=== PATIENT | female | born 1995 | race Caucasian/White ===

== ENCOUNTER 2016-12-03 13:08 | Emergency (ER) | payer MEDICAID ==
[2016-12-03] MEDS ORDERED: ACETAMINOPHEN 325 MG TABLET PO ONE (14:55)
[2016-12-03] MEDS ORDERED: CETIRIZINE 10 MG TABLET PO ONE (14:59)
--- NOTE | 2016-12-03 15:00 | ER Document Report ---
HPI - HPI Patient complains to provider of: Sinus congestion Onset: Last week - Since last Onset/Duration: Worse Quality of pain: Achy Pain Level: 3 Context: Complaining of sinus congestion and drainage. Patient is currently 5 months patient reports cough that started yesterday with low-grade fever of 100. Patient denies any urinary symptoms at this time. Patient is . Associated Symptoms: Nonproductive cough, Fever, Rhinnorhea, Sinus pain/ drainage. denies: Sore throat Exacerbated by: Denies Relieved by: Denies Similar symptoms previously: Yes Recently seen / treated by doctor: No - ROS ROS below otherwise negative: Yes Systems Reviewed and Negative: Yes All other systems reviewed and negative - CONSTITUTIONAL Constitutional: REPORTS: Fever - EENT EENT: REPORTS: Nasal Drainage-Clear, Congestion - NEURO Neurology: REPORTS: Headache - CARDIOVASCULAR Cardiovascular: DENIES: Chest pain - RESPIRATORY Respiratory: REPORTS: Coughing. DENIES: Trouble Breathing - GASTROINTESTINAL Gastrointestinal: DENIES: Abdominal Pain, Nausea, Patient vomiting, Diarrhea - URINARY Urinary: DENIES: Dysuria, Urgency, Frequency - MUSCULOSKELETAL Musculoskeletal: DENIES: Back Pain - DERM Skin Color: Normal Skin Problems: None Past Medical History - General Information source: Patient Last Menstrual Period: 5 months - Social History Smoking Status: Never Smoker Frequency of alcohol use: None Drug Abuse: None Occupation: None Lives with: Family Family History: Reviewed & Not Pertinent Patient has suicidal ideation: No Patient has homicidal ideation: No Pulmonary Medical History: Reports: Hx Asthma EENT Medical History: Reports: Other - Allergy Renal/ Medical History: Denies: Hx Peritoneal Dialysis Surgical Hx: Negative Vertical Provider Document - CONSTITUTIONAL Agree With Documented VS: Yes General Appearance: WD/WN, No Apparent Distress - INFECTION CONTROL TRAVEL OUTSIDE OF THE [place] IN LAST 30 DAYS: No - HEENT HEENT: Atraumatic, Normocephalic. negative: Pharyngeal Exudate, Pharyngeal Tenderness, Tympanic Membrane Red, Tympanic Membrane Bulging Notes: Clear rhinorrhea, swollen nasal mucosa - NECK Neck: Normal Inspection, Supple, Other - No meningismus. negative: Lymphadenopathy-Left, Lymphadenopathy-Right - RESPIRATORY Respiratory: Breath Sounds Normal, No Respiratory Distress, Chest Non-Tender O2 Sat by Pulse Oximetry: 100 - CARDIOVASCULAR Cardiovascular: Regular Rate, Regular Rhythm, No Murmur - BACK Back: Normal Inspection. negative: CVA Tenderness-Right, CVA Tenderness-Left - MUSCULOSKELETAL/EXTREMETIES Musculoskeletal/Extremeties: MATRIPP, FROM - NEURO Level of Consciousness: Awake, Alert, Appropriate Motor/Sensory: No Motor Deficit - DERM Integumentary: Warm, Dry, No Rash Course - Vital Signs Vital signs: Temp Pulse Resp BP Pulse Ox 97.6 F 98 18 101/83 100 12/03/16 13:34 12/03/16 13:34 12/03/16 13:34 12/03/16 13:34 12/03/16 13:34 Discharge - Discharge Clinical Impression: Sinus congestion Upper respiratory infection Qualifiers: URI type: unspecified URI Qualified Code(s): J06.9 - Acute upper respiratory infection, unspecified Condition: Stable Disposition: HOME, SELF-CARE Instructions: Upper Respiratory Illness ([facility]), Acetaminophen Additional Instructions: Return immediately for any new or worsening symptoms Followup with your primary care provider, call tomorrow to make a followup appointment Increase oral hydration You may take Tylenol szzv-ona-[id number] to help with her headache symptoms, you can take 1000 mg every 6 hours you may take Benadryl zpox-seo-[id number] to help with sinus congestion you may take vwma-bte-[id number] Mucinex to help with congestion symptoms use saline nasal spray over the counter as directed to help with congestion symptoms Referrals: [facility] [Provider Group] - Follow up tomorrow
[2016-12-03 16:13] VITALS: BP 107/57
== END 2016-12-03 16:09 | disposition home or self-care (01) ==
LOC: ER 13:08
DX: O99.519 Diseases of the respiratory system complicating pregnancy, unspecified trimester (principal); J06.9 Acute upper respiratory infection, unspecified; J34.89 Other specified disorders of nose and nasal sinuses; J45.909 Unspecified asthma, uncomplicated; O26.899 Other specified pregnancy related conditions, unspecified trimester; R09.81 Nasal congestion; R05 Cough; R50.9 Fever, unspecified; R51 Headache; Z3A.00 Weeks of gestation of pregnancy not specified
CPT/HCPCS: 99283; J3490 ×2

== ENCOUNTER 2017-02-07 15:01 | Outpatient (CLI) | payer MEDICAID ==
[2017-02-07 16:04] LABS: AMORPHOUS SEDIMENT,URINE TRACE /HPF; APPEARANCE,URINE SLIGHTLY-CLOUDY; BILIRUBIN,URINE NEGATIVE (NEGATIVE); GLUCOSE, URINE NEGATIVE (NEGATIVE); KETONES,URINE NEGATIVE (NEGATIVE); LEUKOCYTE ESTERASE,URINE MODERATE (NEGATIVE); NITRITE,URINE NEGATIVE (NEGATIVE); PROTEIN,URINE NEGATIVE (NEGATIVE); URINE SPECIFIC GRAVITY 1.009; UROBILINOGEN,URINE NEGATIVE mg/dL (<2.0)
[2017-02-07 16:21] LABS: URINE BARBITURATES SCREEN NEGATIVE; URINE METHADONE SCREEN NEGATIVE; URINE OPIATES LOW NEGATIVE; URINE PHENCYCLIDINE SCREEN NEGATIVE
--- NOTE | 2017-02-07 17:58 | RADIOLOGY REPORT (SQ) ---
EXAM DESCRIPTION: U/S OB LIMITED COMPLETED DATE/TIME: 02/07/2017 5:49 pm REASON FOR STUDY: transvaginalcervical length for back pain/cramping COMPARISON: None. TECHNIQUE: Limited transvaginal grayscale ultrasound for evaluation of specific requested obstetrica l parameters. LIMITATIONS: None. FINDINGS: CERVICAL LENGTH: 3.1 cm Closed. LAZARO: 18.2 cm. FHR: 130 beats per minute. PRESENTATION: Cephalic. OTHER: No other significant findings. IMPRESSION: LIMITED OBSTETRICAL ULTRASOUND WITH MEASURED PARAMETERS DELINEATED ABOVE. Trimester of : Third trimester - 28 weeks to delivery. TECHNICAL DOCUMENTATION: JOB ID: [id number] [employer]- All Rights Reserved
[2017-02-07] MEDS ORDERED: BETAMET ACET/BETAMET NA INJ 6 MG/1 ML IM ONE (18:42)
[2017-02-07] MEDS ORDERED: BETAMET ACET/BETAMET NA INJ 6 MG/1 ML ONE (18:50)
== END 2017-02-07 19:00 | disposition home or self-care (01) ==
LOC: LC 15:01
PROVIDERS: ATTEND Obstetrics & Gynecology
PROC: 4A1HXCZ Monitoring of Products of Conception, Cardiac Rate, External Approach (ICD-10-PCS; principal; 2017-02-07)
DX: O47.03 False labor before 37 completed weeks of gestation, third trimester (principal); Z3A.30 30 weeks gestation of pregnancy
CPT/HCPCS: 59899; 81001; 80307; 76815; J0702

== ENCOUNTER 2017-02-08 18:07 | Outpatient (CLI) | payer MEDICAID ==
[2017-02-08] MEDS ORDERED: BETAMET ACET/BETAMET NA INJ 6 MG/1 ML IM PRN (18:08)
[2017-02-08] MEDS ORDERED: BETAMET ACET/BETAMET NA INJ 6 MG/1 ML ONE ×2 (18:20→18:21)
== END 2017-02-08 18:24 | disposition home or self-care (01) ==
LOC: LC 18:07
PROVIDERS: ATTEND Specialist
DX: O47.03 False labor before 37 completed weeks of gestation, third trimester (principal); Z3A.30 30 weeks gestation of pregnancy
CPT/HCPCS: 96372; J0702

== ENCOUNTER 2017-03-22 14:12 | Outpatient (CLI) | payer MEDICAID ==
[2017-03-22 14:47] LABS: APPEARANCE,URINE SLIGHTLY-CLOUDY; BILIRUBIN,URINE NEGATIVE (NEGATIVE); GLUCOSE, URINE NEGATIVE (NEGATIVE); KETONES,URINE NEGATIVE (NEGATIVE); LEUKOCYTE ESTERASE,URINE MODERATE (NEGATIVE); NITRITE,URINE NEGATIVE (NEGATIVE); PROTEIN,URINE NEGATIVE (NEGATIVE); URINE SPECIFIC GRAVITY 1.008; UROBILINOGEN,URINE NEGATIVE mg/dL (<2.0)
[2017-03-22 15:06] LABS: URINE BARBITURATES SCREEN NEGATIVE; URINE METHADONE SCREEN NEGATIVE; URINE OPIATES LOW NEGATIVE; URINE PHENCYCLIDINE SCREEN NEGATIVE
== END 2017-03-22 15:39 | disposition home or self-care (01) ==
LOC: LC 14:12
PROVIDERS: ATTEND Student in an Organized Health Care Education/Training Program
PROC: 4A1HXCZ Monitoring of Products of Conception, Cardiac Rate, External Approach (ICD-10-PCS; principal; 2017-03-22)
DX: O47.03 False labor before 37 completed weeks of gestation, third trimester (principal); Z3A.36 36 weeks gestation of pregnancy
CPT/HCPCS: 59025; 80307; 81001

== ENCOUNTER 2017-04-09 12:07 | Inpatient (IN) | payer MEDICAID ==
[2017-04-09 13:14] LABS: AMORPHOUS SEDIMENT,URINE TRACE /HPF; APPEARANCE,URINE CLOUDY; BILIRUBIN,URINE NEGATIVE (NEGATIVE); GLUCOSE, URINE NEGATIVE (NEGATIVE); KETONES,URINE NEGATIVE (NEGATIVE); LEUKOCYTE ESTERASE,URINE TRACE (NEGATIVE); NITRITE,URINE NEGATIVE (NEGATIVE); PROTEIN,URINE NEGATIVE (NEGATIVE); URINE SPECIFIC GRAVITY 1.012; UROBILINOGEN,URINE NEGATIVE mg/dL (<2.0)
[2017-04-09 13:25] LABS: URINE BARBITURATES SCREEN NEGATIVE; URINE METHADONE SCREEN NEGATIVE; URINE OPIATES LOW NEGATIVE; URINE PHENCYCLIDINE SCREEN NEGATIVE
[2017-04-09] MEDS ORDERED: RINGERS SOLUTION,LACTATED 1,000 ML IV PRN (14:11)
[2017-04-09] MEDS ORDERED: RINGERS SOLUTION,LACTATED 300 ML IV ONE (14:11)
[2017-04-09] MEDS ORDERED: OXYTOCIN/NORMAL SALINE 20 UNIT/1,000 ML RTUINJ IV PRN ×2 (14:11→23:14)
[2017-04-09 14:44] LABS: ABSOLUTE BASOPHILS # (AUTO) 0.1 10^3/uL (0.0-0.2); ABSOLUTE EOSINOPHILS # (AUTO) 0.2 10^3/uL (0.0-0.6); ABSOLUTE LYMPHOCYTES (AUTO) 2.8 10^3/uL (0.5-4.7); ABSOLUTE NEUT (AUTO) 12.6 10^3/uL (1.7-8.2); BASOPHILS % (AUTO) 0.4 % (0-2); EOSINOPHILS % (AUTO) 1.1 % (0-6); HEMATOCRIT 37.9 % (36.0-47.0); HEMOGLOBIN 13.2 g/dL (12.0-15.5); HGB HCT DIFFERENCE 1.7; LYMPHOCYTES % (AUTO) 16.8 % (13-45); MEAN CORPUSCULAR HEMOGLOBIN 31.5 pg (27.0-33.4); MEAN CORPUSCULAR HGB CONC 34.9 g/dL (32.0-36.0); MEAN CORPUSCULAR VOLUME 90 fl (80-97); MONOCYTES % (AUTO) 5.9 % (3-13); SEGMENTED NEUTROPHILS % (AUTO) 75.8 % (42-78); WHITE BLOOD COUNT 16.7 10^3/uL (4.0-10.5)
[2017-04-09] MEDS ORDERED: MISOPROSTOL 0.1 MG TABLET PO ONE (14:45)
[2017-04-09] MEDS ORDERED: MISOPROSTOL 0.1 MG TABLET ONE (15:41)
[2017-04-09 16:54] LABS: CHLAM PCR NOT DETECTED (NOT DETECT)
[2017-04-09] MEDS ORDERED: MISOPROSTOL 0.1 MG TABLET PV SCH (18:00)
[2017-04-09] MEDS ORDERED: MISOPROSTOL 0.2 MG TABLET ONE (20:11)
[2017-04-09] MEDS ORDERED: OXYTOCIN/NORMAL SALINE 20 UNIT/1,000 ML RTUINJ ONE (20:11)
[2017-04-09] MEDS ORDERED: LIDOCAINE 1% INJ-PF (10 MG/ML) 30 ML SDV ONE (20:11)
[2017-04-09] MEDS ORDERED: FENTANYL/BUPIVACAINE/NS/PF 200 MCG/100 ML RTUINJ EPI ONE (21:44)
[2017-04-09] MEDS ORDERED: EPHEDRINE SULFATE INJ 50 MG/1 ML AMPULE ONE (21:44)
[2017-04-09] MEDS ORDERED: BUPIVACAINE HCL 0.25 % INJ/PF (2.5 MG/1 ML) 30 ML VIAL ONE (21:44)
[2017-04-09] MEDS ORDERED: DIPH/PERTUSS(ACELL)/TETANUS VAC/PF 0.5 ML SYR (>=10YO) IM PRN (23:14)
[2017-04-09] MEDS ORDERED: PROMETHAZINE HCL 25 MG SUPP.RECT PR PRN (23:14)
[2017-04-09] MEDS ORDERED: DIBUCAINE 1% OINTMENT 28 GM TP PRN (23:14)
[2017-04-09] MEDS ORDERED: PROMETHAZINE HCL 25 MG TABLET PO PRN (23:14)
[2017-04-09] MEDS ORDERED: NA PHOS,M-B/NA PHOS,DI-BA (ADULT) 133 ML ENEMA PR PRN (23:14)
[2017-04-09] MEDS ORDERED: BENZOCAINE/MENTHOL AEROSOL SPRAY 56 ML TOP PRN (23:14)
[2017-04-09] MEDS ORDERED: MEASLES,MUMPS&RUBELLA VACC/PF 0.5 ML VIAL SUBCUT PRN (23:14)
[2017-04-09] MEDS ORDERED: PSEUDOEPHEDRINE HCL 30 MG TABLET PO PRN (23:14)
[2017-04-09] MEDS ORDERED: DIPHENHYDRAMINE HCL 25 MG CAPSULE PO PRN (23:14)
[2017-04-09] MEDS ORDERED: ACETAMINOPHEN 650 MG SUPP.RECT PR PRN (23:14)
[2017-04-09] MEDS ORDERED: GLYCERIN/WITCH HAZEL LEAF 1 EACH MED..PAD TP PRN (23:14)
[2017-04-09] MEDS ORDERED: ACETAMINOPHEN WITH CODEINE #3 TABLET PO PRN ×2 (23:14)
[2017-04-09] MEDS ORDERED: MAGNESIUM HYDROXIDE SUSP 30 ML UDCUP PO PRN (23:14)
[2017-04-09] MEDS ORDERED: ZOLPIDEM TARTRATE 5 MG TABLET PO PRN (23:14)
[2017-04-09] MEDS ORDERED: PROMETHAZINE HCL INJ 25 MG/1 ML VIAL IV PRN (23:14)
--- NOTE | 2017-04-09 23:42 | Delivery Summary ---
Del Sum A-C Datetime Report Generated by CPN: 04/09/2017 23:41 DELIVERY PERSONNEL DELIVERY PERSONNEL: [id number] Delivery Doctor:: Velia Patrick MD Anesthesiologist:: Kike Felton MD Labor and Delivery Nurse:: Hoda Menezes RNweighbridge operator Nurse:: Jolanta Ward RN Film Mounter/INSTRUCTOR PROGRAMMABLE CONTROLLERS: Vickeycolette Soler, INSTRUCTOR PROGRAMMABLE CONTROLLERS MATERNAL INFORMATION Delivery Anesthesia: Epidural Medications After Delivery: Pitocin Bolus-Please Comment Meds After Delivery Comment: pitocin 20 units in 1000 ml NS Estimated Blood Loss (ml): 200 Maternal Complications: None Provider Comments: uterine exploration performed. LABOR SUMMARY EDC: 04/13/2017 00:00 No. Babies in Womb: 1 Attempted: No Labor Anesthesia: Epidural LABOR INFORMATION Reason for Induction: Oligohydramnios Onset of Labor: 04/09/2017 19:33 Complete Dilatation: 04/09/2017 22:49 Cervical Ripening Agents: Cytotec @ Oxytocin: N/A Group B Beta Strep: Negative Steroids Given: None Reason Steroids Not Administered: Not Applicable MEMBRANES Membranes Rupture Method: Artificial Rupture of Membranes: 04/09/2017 23:00 Length of Rupture (hr): 0.05 Amniotic Fluid Color: Clear Amniotic Fluid Amount: Small Amniotic Fluid Odor: Normal STAGES OF LABOR Stage 1 hr: 3 Stage 1 min: 16 Stage 2 hr: 0 Stage 2 min: 14 Stage 3 hr: 0 Stage 3 min: 54 Total Time in Labor hr: 4 Total Time in Labor min: 24 VAGINAL DELIVERY Episiotomy: None Laceration Type: None Laceration Repair: Not Applicable Sponge Count Correct: N/A Sharps Count Correct: N/A CSECTION DELIVERY Primary Indication: N/A Secondary Indication: N/A CSection Incision: N/A BABY A INFORMATION Infant Delivery Date/Time: 04/09/2017 23:03 Method of Delivery: Vaginal Born in Route : No : N/A Forceps: N/A Vacuum Extraction: N/A Shoulder Dystocia : No PRESENTATION/POSITION BABY A Presentation: Cephalic Cephalic Presentation: N/A Vertex Position: Right Occipital Anterior Breech Presentation: N/A PLACENTA INFORMATION BABY A Placenta Delivery Time : 04/09/2017 23:57 Placenta Method of Delivery: Spontaneous Placenta Status: Delivered SCORES BABY A Heart Rate 1 min: >100 bpm Resp Effort 1 min: Good Cry Reflex Irritability 1 min: Cough or Sneeze or Pulls Away Muscle Tone 1 min: Active Motion Color 1 min: Blue/Pale Resuscitation Effort 1 min: Tactile Stimulation SCORE 1 MIN: 8 Heart Rate 5 min: >100 bpm Resp Effort 5 min: Good Cry Reflex Irritability 5 min: Cough or Sneeze or Pulls Away Muscle Tone 5 min: Active Motion Color 5 min: Body Pe[place]ier, Extremities Blue Resuscitation Effort 5 min: N/A SCORE 5 MIN: 9 INFORMATION BABY A Gestational Age at Delivery: 39.3 Gestational Status: Full Term- 39- 40.6 Weeks Infant Outcome : Liveborn Condition : Stable Infant Sex: Male IDENTIFICATION BABY A Verification Date/Time: 04/09/2017 23:12 ID Band Number: [id number] Mother's Name Verified: Yes RN Verifying : Yovanyman, A. RN Additional Verifying Personnel: Ward, L. RN CORD INFORMATION BABY A No. Cord Vessels: 3 Nuchal Cord : Around Neck x1, Loose Cord Blood Taken: Yes-For Eval (Mom's Blood Type - or O+) Suction: None; Mouth ASSESSMENT BABY A Skin to Skin: Yes BABY B INFORMATION : N/A SIGNATURES Signature: with User ID: Jose
--- NOTE | 2017-04-10 01:32 | Admission Physical ---
Datetime Report Generated by CPN: 04/10/2017 01:32 CURRENT ADMISSION Hx Assessment: The History has been Reviewed and is Current Chief Complaint: Other Indication for Induction: Oligohydramnios Admit Plan: Admit to Unit; Initiate Labor Induction Protocol ALLERGIES Medication Allergies: Yes Medication Allergies: Penicillins/SV (04/09/2017) Medication Allergies: Penicillins (12/03/2016) Latex: No Latex Allergies Food Allergies: N/A Environmental Allergies: N/A OBSTETRICAL HISTORY EDC: 04/13/2017 00:00 : 3 Para: 1 Term: 1 : 0 SAB: 1 IAB: 0 Ectopic: 0 Livin Cesareans: 0 VBACs: 0 Multiple Births: 0 Gestational Diabetes: No Rh Sensitization: No Incompetent Cervix: No NEGRA: No Infertility: No ART Treatment: No Uterine Anomaly: No IUGR: No Hx Previous C/S: No Macrosomia: No Hx Loss/Stillborn: No PIH: No Hx : No Placenta Previa/Abruption: No Depression/PP Depression: No PTL/PROM: No Post Hemorrhage: No Current Procedures: Ultrasound; NST Obstetrical History Comments: G1 - SAB G2 - 2015, , Baby Girl G3 - Current SEE RECORDS Alcohol: No Marijuana : No Cocaine: No Other Illicit Drugs: No Cigarettes: Current Everyday Smoker. [id number] Cigarette Frequency: 5 - 10 per day Advised to Stop: Yes MEDICAL HISTORY Diabetes: No Blood Transfusion: No Pulmonary Disease (Asthma, TB): No Breast Disease: No Hypertension: No Rehabilitation Program Manager Surgery: No Heart Disease: No Hosp/Surgery: No Autoimmune Disorder: No Anesthetic Complications: No Kidney Disease: Yes Abnormal Pap Smear: No Neuro/Epilepsy: No Psychiatric Disorders: No Other Medical Diseases: No Hepatitis/Liver Disease: No Significant Family History: No Varicosities/Phlebitis: No Trauma/Violence : No Thyroid Dysfunction: No Medical History Comments: UTI's INFECTIOUS HISTORY Gonorrhea: No Genital Herpes: No Chlamydia: No Tuberculosis: No Syphilis: No Hepatitis: No HIV/AIDS Exposure: No Rash or Viral Illness: No HPV: No PHYSICAL EXAM General: Normal HEENT: Normal Neurologic: Normal Thyroid: Deferred Heart: Normal Lungs: Normal Breast: Normal Back: Normal Abdomen: Normal Genitourinary Exam: Normal Extremities: Normal DTRs: Normal Pelvic Type: Adequate Vital Signs: Reviewed VAGINAL EXAM Dilatation: 1 Effacement: 0 Station: -2 Contraction Comments: rare MEMBRANES Membranes: Intact FETUS A EGA: 39.3 Monitoring: External US FHR- Baseline: 120 Variability: Moderate 6-25bpm Accelerations: 15X15 Decelerations: None FHR Category: Category I Estimated Weight (gm): 3800 Presentation: Vertex Admit Comment: Pt sent in from office for low miranda 4.17 Hx: family hx of alpha 1 anti-trypsin, pt has been tested and in negative, short interval between , ? iugr with G1, had bmz for ctx + chlam @ 36w-margaux pending. Admit to L _ D IOL, cytotec GBS negative See record for compete medical, surgical, hx. PLANS FOR LABOR AND DELIVERY Labor and Delivery: None Pain Management: Epidural Feeding Preference: Breast Benefit of Breast Feed Discussed: Yes Circumcision: No INFORMED CONSENT Assignment: Velia Patrick MD Signature: with User ID: Willis : with User ID: Willis
[2017-04-10] MEDS: IBUPROFEN 800 MG TABLET PO SCH ×3 (05:54→21:14)
[2017-04-10 07:24] LABS: HEMATOCRIT 33.3 % (36.0-47.0); HEMOGLOBIN 11.7 g/dL (12.0-15.5); HGB HCT DIFFERENCE 1.8; MEAN CORPUSCULAR HEMOGLOBIN 31.7 pg (27.0-33.4); MEAN CORPUSCULAR HGB CONC 35.1 g/dL (32.0-36.0); MEAN CORPUSCULAR VOLUME 90 fl (80-97); RED BLOOD COUNT 3.69 10^6/uL (3.72-5.28); RED CELL DISTRIBUTION WIDTH 13.8 % (11.5-14.0)
[2017-04-10] MEDS: FAMOTIDINE 20 MG TABLET PO SCH ×2 (09:21→21:14)
[2017-04-10] MEDS: SENNOSIDES/DOCUSATE 8.6-50 MG 1 EACH TABLET PO SCH (09:22)
[2017-04-10] MEDS: PRENATAL VITAMIN W-O CA NO5/FE FUMARATE/FA CAPSULE PO SCH (09:22)
[2017-04-10] MEDS: FERROUS SULFATE 325 MG TABLET PO SCH ×2 (09:22→17:19)
[2017-04-10] MEDS: DOCUSATE SODIUM 100 MG CAPSULE PO SCH ×2 (09:22→17:19)
[2017-04-10] MEDS ORDERED: PRENATAL VITAMIN W-O CA NO5/FE FUMARATE/FA CAPSULE PO SCH (10:00)
--- NOTE | 2017-04-10 10:04 | PDOC PROGRESS REPORT ---
Subjective-OB Subjective: Post Delivery Day: 1 21 year old. Denies any needs at this time, states lochia is stable, pain well controlled, voiding without difficulty. Physical Exam (OB) Vital Signs: Temp Pulse Resp BP Pulse Ox 97.5 F 66 16 107/70 99 04/10/17 09:04 04/10/17 09:04 04/10/17 09:04 04/10/17 09:04 04/10/17 09:04 Intake & Output 04/09/17 04/10/17 04/11/17 06:59 06:59 06:59 Weight 72.65 kg - PIH/Pre-Eclampsia Clonus: Negative Headache: Absent Epigastric Pain: No Visual Changes: No - Lochia Lochia Amount: Scant < 10 ml - Abdomen Description: Soft, Round Fundal Description: Firm Fundal Height: u/u - u/2 Objective-Diagnostic Laboratory: 04/10/17 07:00 04/09/17 04/09/17 04/09/17 12:43 14:28 14:28 WBC 16.7 H RBC 4.20 Hgb 13.2 Hct 37.9 MCV 90 MCH 31.5 MCHC 34.9 RDW 14.0 Plt Count 243 Seg Neutrophils % 75.8 Lymphocytes % 16.8 Monocytes % 5.9 Eosinophils % 1.1 Basophils % 0.4 Absolute Neutrophils 12.6 H Absolute Lymphocytes 2.8 Absolute Monocytes 1.0 Absolute Eosinophils 0.2 Absolute Basophils 0.1 Urine Color YELLOW Urine Appearance CLOUDY Urine pH 6.0 Ur Specific [place] 1.012 Urine Protein NEGATIVE Urine Glucose (UA) NEGATIVE Urine Ketones NEGATIVE Urine Blood LARGE H Urine Nitrite NEGATIVE Ur Leukocyte Esterase TRACE H Urine WBC (Auto) 7 Urine RBC (Auto) 5 Blood Type A POSITIVE Antibody Screen NEGATIVE 04/10/17 07:00 WBC 24.0 H RBC 3.69 L Hgb 11.7 L Hct 33.3 L MCV 90 MCH 31.7 MCHC 35.1 RDW 13.8 Plt Count 195 Seg Neutrophils % Lymphocytes % Monocytes % Eosinophils % Basophils % Absolute Neutrophils Absolute Lymphocytes Absolute Monocytes Absolute Eosinophils Absolute Basophils Urine Color Urine Appearance Urine pH Ur Specific [place] Urine Protein Urine Glucose (UA) Urine Ketones Urine Blood Urine Nitrite Ur Leukocyte Esterase Urine WBC (Auto) Urine RBC (Auto) Blood Type Antibody Screen Assessment and Plan(PN) - Assessment and Plan (1) Vaginal delivery Is this a current diagnosis for this admission?: Yes Plan: routine pp care (2) Acute blood loss anemia Is this a current diagnosis for this admission?: Yes Plan: ferrous sulfate - Time Spent with Patient Time with patient: Less than 15 minutes Critical Time spent with patient: Less than 15 minutes Medications reviewed and adjusted accordingly: Yes - Disposition Anticipated Discharge: Home Within: within 24 hours
[2017-04-11] MEDS: IBUPROFEN 800 MG TABLET PO SCH ×2 (06:08→14:56)
[2017-04-11 06:40] LABS: HEMATOCRIT 34.9 % (36.0-47.0); HGB HCT DIFFERENCE 1.1; MEAN CORPUSCULAR HGB CONC 34.4 g/dL (32.0-36.0); MEAN CORPUSCULAR VOLUME 90 fl (80-97); RED BLOOD COUNT 3.87 10^6/uL (3.72-5.28); WHITE BLOOD COUNT 16.2 10^3/uL (4.0-10.5)
[2017-04-11 07:13] LABS: BASOPHILS % (MANUAL) 0 % (0-2); EOSINOPHILS % (MANUAL) 0 % (0-6); LYMPHOCYTES % (MANUAL) 21 % (13-45); RBC MORPHOLOGY COMMENT NORMO-CYTIC/CHROMIC; TOTAL CELLS COUNTED 100
--- NOTE | 2017-04-11 09:45 | PDOC DISCHARGE SUMMARY ---
Final Diagnosis Discharge Date: 04/11/17 - Final Diagnosis (1) Vaginal delivery Is this a current diagnosis for this admission?: Yes (2) Acute blood loss anemia Is this a current diagnosis for this admission?: Yes Discharge Data - Discharge Medication Home Medications: Vit/Iron Fum/Folic AC [ Tablet] 1 each PO DAILY 02/07/17 Docusate Sodium [Colace 100 mg Capsule] 100 mg PO BID #30 capsule 04/11/17 Ibuprofen [Motrin 800 mg Tablet] 800 mg PO Q8 #60 tablet 04/11/17 - Data Baby 1 Male at 1 minute: 8 at 5 minutes: 9 Home with Mother: Yes Complications: No - Diagnosis Test Laboratory: Temp Pulse Resp BP Pulse Ox 98.3 F 73 18 120/78 100 04/10/17 20:44 04/10/17 20:44 04/10/17 20:44 04/10/17 20:44 04/10/17 20:44 04/09/17 04/09/17 04/10/17 12:43 14:28 07:00 RBC 4.20 3.69 L Hgb 13.2 11.7 L Hct 37.9 33.3 L Urine Opiates Screen NEGATIVE 04/11/17 06:14 RBC 3.87 Hgb 12.0 Hct 34.9 L Urine Opiates Screen - Discharge information/Instructions Discharge Activity: Activity As Tolerated, Pelvic Rest, No tub bath Discharge Diet: Regular Disposition: HOME, SELF-CARE Follow up with: [facility] in: 4, Weeks
[2017-04-11] MEDS: DOCUSATE SODIUM 100 MG CAPSULE PO SCH ×2 (09:52→17:42)
[2017-04-11] MEDS: FAMOTIDINE 20 MG TABLET PO SCH (09:52)
[2017-04-11] MEDS: PRENATAL VITAMIN W-O CA NO5/FE FUMARATE/FA CAPSULE PO SCH (09:53)
[2017-04-11] MEDS: FERROUS SULFATE 325 MG TABLET PO SCH ×2 (09:53→17:42)
[2017-04-11] MEDS: SENNOSIDES/DOCUSATE 8.6-50 MG 1 EACH TABLET PO SCH (09:54)
[2017-04-11 12:14] VITALS: BP 114/67
== END 2017-04-11 18:59 | disposition home or self-care (01) | DRG 775 ==
LOC: LC 12:07 → LR 14:29 → 2S 04-10 01:29
PROVIDERS: ADMIT Obstetrics & Gynecology; ATTEND Obstetrics & Gynecology
PROC: 10E0XZZ Delivery of Products of Conception, External Approach (ICD-10-PCS; principal; 2017-04-09)
PROC: 10907ZC Drainage of Amniotic Fluid, Therapeutic from Products of Conception, Via Natural or Artificial Opening (ICD-10-PCS; 2017-04-09)
PROC: 4A1HXCZ Monitoring of Products of Conception, Cardiac Rate, External Approach (ICD-10-PCS; 2017-04-09)
DX: O41.03X0 Oligohydramnios, third trimester, not applicable or unspecified (principal); O99.02 Anemia complicating childbirth; D62 Acute posthemorrhagic anemia; O99.334 Smoking (tobacco) complicating childbirth; O69.81X0 Labor and delivery complicated by cord around neck, without compression, not applicable or unspecified; F17.210 Nicotine dependence, cigarettes, uncomplicated; Z3A.39 39 weeks gestation of pregnancy; Z37.0 Single live birth; Z88.0 Allergy status to penicillin
CPT/HCPCS: 36415; 80307; 81001; 85025; 85027; 86592; 86850; 86900; 86901; 87491; 87591; 94760; J2590; J3490; Q0114

== ENCOUNTER 2018-08-23 21:34 | Emergency (ER) | payer BC, MEDICAID ==
[2018-08-24] MEDS ORDERED: NORMAL SALINE 1000 ML 1,000 ML IV ONE (01:15)
[2018-08-24] MEDS ORDERED: ONDANSETRON HCL INJ/PF 4 MG/2 ML SDV IV ONE ×2 (01:15→03:07)
--- NOTE | 2018-08-24 01:18 | ER Document Report ---
ED Medical Screen (RME) - General Chief Complaint: Nausea/Vomiting Stated Complaint: VOMITING Time Seen by Provider: 08/24/18 01:14 Primary Care Provider: ROBERT MEMBRENO MD [Primary Care Provider] - Follow up as needed Notes: Patient is a 23-year-old female who presents emergency department with a chief complaint of nausea, vomiting, diarrhea and abdominal pain. She states that her symptoms started 2 days ago. She had some sick contacts with the similar symptoms. She is also 5 weeks . She states that she threw up about 30 times today and had 3 bouts of diarrhea. TRAVEL OUTSIDE OF THE [place] IN LAST 30 DAYS: No - Related Data Allergies/Adverse Reactions: Penicillins Allergy (Severe, Verified 04/09/17 12:18) Past Medical History - Social History Chew tobacco use (# tins/day): No Frequency of alcohol use: None Drug Abuse: None Pulmonary Medical History: Reports: Hx Asthma Renal/ Medical History: Denies: Hx Peritoneal Dialysis - Immunizations Hx Diphtheria, Pertussis, Tetanus Vaccination: Yes Physical Exam - Vital signs Vitals: Temp Pulse Resp BP Pulse Ox 98.7 F 97 18 116/57 L 98 08/23/18 22:00 08/23/18 22:00 08/23/18 22:00 08/23/18 22:00 08/23/18 22:00 - Abdominal Tenderness: Tender Course - Vital Signs Vital signs: Temp Pulse Resp BP Pulse Ox 98.7 F 97 18 116/57 L 98 08/23/18 22:00 08/23/18 22:00 08/23/18 22:00 08/23/18 22:00 08/23/18 22:00 Doctor's Discharge - Discharge Referrals: ROBERT MEMBRENO MD [Primary Care Provider] - Follow up as needed
[2018-08-24 01:43] LABS: ABSOLUTE LYMPHOCYTES (AUTO) 1.6 10^3/uL (0.5-4.7); ABSOLUTE MONOCYTES (AUTO) 0.5 10^3/uL (0.1-1.4); ABSOLUTE NEUT (AUTO) 16.2 10^3/uL (1.7-8.2); BASOPHILS % (AUTO) 0.1 % (0-2); EOSINOPHILS % (AUTO) 0.2 % (0-6); HEMATOCRIT 45.2 % (36.0-47.0); HEMOGLOBIN 15.5 g/dL (12.0-15.5); LYMPHOCYTES % (AUTO) 8.8 % (13-45); MEAN CORPUSCULAR HEMOGLOBIN 29.9 pg (27.0-33.4); MEAN CORPUSCULAR HGB CONC 34.2 g/dL (32.0-36.0); MEAN CORPUSCULAR VOLUME 87 fl (80-97); MONOCYTES % (AUTO) 2.5 % (3-13); PLATELET COUNT 294 10^3/uL (150-450); RED BLOOD COUNT 5.17 10^6/uL (3.72-5.28); RED CELL DISTRIBUTION WIDTH 14.2 % (11.5-14.0); SEGMENTED NEUTROPHILS % (AUTO) 88.4 % (42-78); TOTAL CELLS COUNTED % (AUTO) 100 %; WHITE BLOOD COUNT 18.3 10^3/uL (4.0-10.5)
--- NOTE | 2018-08-24 01:47 | ER Document Report ---
ED General - General Chief Complaint: Nausea/Vomiting Stated Complaint: VOMITING Time Seen by Provider: 08/24/18 01:14 Primary Care Provider: ROBERT MEMBRENO MD [Primary Care Provider] - Follow up as needed Mode of Arrival: Ambulatory Information source: Patient Notes: 23-year-old female who is 5 weeks presents the emergency department complaints of nausea, vomiting, diarrhea, abdominal pain. Patient states that her symptoms started 2 days ago and have been getting progressively worse. Patient states that she has had about 30 episodes of emesis today. Patient states that her abdominal pain is a diffuse aching sensation. She denies any radiation of the pain. She denies any alleviating or exacerbating factors. She denies any fever, chills, dysuria, hematuria, abnormal vaginal bleeding, vaginal discharge. Patient states that she has an appointment with her SHAPING MACHINE TENDER on August 30. She has not had any care thus far. TRAVEL OUTSIDE OF THE [place] IN LAST 30 DAYS: No - HPI Onset: Last week Onset/Duration: Gradual, Worse Quality of pain: Achy Severity: Moderate Pain Level: 4 Associated symptoms: Diarrhea, Nausea, Vomiting Exacerbated by: Denies Relieved by: Denies Similar symptoms previously: No Recently seen / treated by doctor: No - Related Data Allergies/Adverse Reactions: Penicillins Allergy (Severe, Verified 04/09/17 12:18) Past Medical History - General Information source: Patient - Social History Smoking Status: Current Every Day Smoker Chew tobacco use (# tins/day): No Frequency of alcohol use: None Drug Abuse: None Family History: Reviewed & Not Pertinent Patient has suicidal ideation: No Patient has homicidal ideation: No Pulmonary Medical History: Reports: Hx Asthma Renal/ Medical History: Denies: Hx Peritoneal Dialysis - Immunizations Hx Diphtheria, Pertussis, Tetanus Vaccination: Yes Review of Systems - Review of Systems Constitutional: No symptoms reported EENT: No symptoms reported Cardiovascular: No symptoms reported Respiratory: No symptoms reported Gastrointestinal: Abdominal pain, Diarrhea, Nausea, Vomiting Genitourinary: No symptoms reported Female Genitourinary: No symptoms reported Musculoskeletal: No symptoms reported Skin: No symptoms reported Hematologic/Lymphatic: No symptoms reported Neurological/Psychological: No symptoms reported -: Yes All other systems reviewed and negative Physical Exam - Vital signs Vitals: Temp Pulse Resp BP Pulse Ox 98.7 F 97 18 116/57 L 98 08/23/18 22:00 08/23/18 22:00 08/23/18 22:00 08/23/18 22:00 08/23/18 22:00 - Notes Notes: PHYSICAL EXAMINATION: GENERAL: Well-appearing, well-nourished and in no acute distress. HEAD: Atraumatic, normocephalic. EYES: Pupils equal round and reactive to light, extraocular movements intact, conjunctiva are normal. ENT: Nares patent, oropharynx clear without exudates. Moist mucous membranes. NECK: Normal range of motion, supple without lymphadenopathy LUNGS: Breath sounds clear to auscultation bilaterally and equal. No wheezes rales or rhonchi. HEART: Regular rate and rhythm without murmurs ABDOMEN: Soft, diffuse tenderness to palpation. No rebound or guarding. Normal active bowel sounds. Musculoskeletal: Normal range of motion, no pitting or edema. No cyanosis. NEUROLOGICAL: Cranial nerves grossly intact. Normal speech, normal gait. Normal sensory, motor exams PSYCH: Normal mood, normal affect. SKIN: Warm, Dry, normal turgor, no rashes or lesions noted. Course - Re-evaluation Re-evalutation: 08/24/18 03:15 Labs and imaging obtained. Ultrasound shows a live intrauterine at 6 weeks 3 days. Labs are significant for an elevated white blood cell count. Patient does have bacteria in the urine. On reevaluation, patient is still feeling nauseated. Additional Zofran ordered. Patient's fluids are still running. Patient continues to deny any abdominal pain. Abdomen is soft and nontender. No RLQ tenderness to palpation. I gave the patient a prescription for Zofran and Macrobid. I told her to follow-up with her primary care physician and SHAPING MACHINE TENDER as scheduled. I told her to take the medication as directed and to return to the emergency department if she begins having fever, chills, worsening symptoms, pain localized to the right lower quadrant. Patient is agreeable with the plan of care. 08/24/18 03:17 08/24/18 03:52 - Vital Signs Vital signs: Temp Pulse Resp BP Pulse Ox 98.7 F 97 18 116/57 L 98 08/23/18 22:00 08/23/18 22:00 08/23/18 22:00 08/23/18 22:00 08/23/18 22:00 - Laboratory Result Diagrams: 08/24/18 01:30 08/24/18 01:30 Laboratory results interpreted by me: 08/24/18 08/24/18 08/24/18 01:30 01:30 01:30 WBC 18.3 H RDW 14.2 H Seg Neutrophils % 88.4 H Lymphocytes % 8.8 L Monocytes % 2.5 L Absolute Neutrophils 16.2 H Glucose 124 H Total Protein 8.3 H Albumin 5.2 H Urine Protein 30 H Urine Ketones 80 H Urine Blood SMALL H Urine Urobilinogen 2.0 H Urine HCG, Qual POSITIVE H Discharge - Discharge Clinical Impression: Hyperemesis gravidarum Condition: Stable Disposition: HOME, SELF-CARE Instructions: Vomiting ([facility]), Intravenous (IV) Fluids ([facility]), Hyperemesis Gravidarum ([facility]) Prescriptions: Nitrofurantoin Macrocrystal [Macrodantin] 100 mg PO BID #14 capsule Ondansetron [Zofran Odt 4 mg Tablet] 1 tab PO Q4H PRN #15 tab.rapdis PRN Reason: For Nausea/Vomiting Referrals: ROBERT MEMBRENO MD [Primary Care Provider] - Follow up as needed VERNA HIGHTOWER MD [ACTIVE STAFF] - Follow up as needed
[2018-08-24 01:52] LABS: APPEARANCE,URINE CLEAR; BILIRUBIN,URINE NEGATIVE (NEGATIVE); COLOR,URINE AMBER; GLUCOSE, URINE NEGATIVE (NEGATIVE); KETONES,URINE 80 mg/dL (NEGATIVE); LEUKOCYTE ESTERASE,URINE NEGATIVE (NEGATIVE); NITRITE,URINE NEGATIVE (NEGATIVE); PROTEIN,URINE 30 mg/dL (NEGATIVE); URINE SPECIFIC GRAVITY 1.032
[2018-08-24 01:55] LABS: ALANINE AMINOTRANSFERASE 10 U/L (9-52); ALBUMIN 5.2 g/dL (3.5-5.0); ALKALINE PHOSPHATASE 60 U/L (38-126); ANION GAP 12 (5-19); ASPARTATE AMINO TRANSFERASE 19 U/L (14-36); BILIRUBIN,DIRECT 0.2 mg/dL (0.0-0.4); BILIRUBIN,TOTAL 1.1 mg/dL (0.2-1.3); BLOOD UREA NITROGEN 15 mg/dL (7-20); CALCIUM 9.7 mg/dL (8.4-10.2); CARBON DIOXIDE 26 mmol/L (22-30); CHLORIDE 103 mmol/L (98-107); GLUCOSE 124 mg/dL (75-110); LIPASE 26.5 U/L (23-300); POTASSIUM 4.3 mmol/L (3.6-5.0); SODIUM 141.1 mmol/L (137-145); TOTAL PROTEIN 8.3 g/dL (6.3-8.2)
--- NOTE | 2018-08-24 02:42 | RADIOLOGY REPORT (SQ) ---
EXAM DESCRIPTION: US TRANSVAGINAL COMPLETED DATE/TME: 08/24/2018 01:43 CLINICAL HISTORY: 23 years, Female, abdominal pain, COMPARISON: None. TECHNIQUE: Transverse and longitudinal transvaginal sonographic images of the pelvis in a first trimester patient LIMITATIONS: None. FINDINGS: The uterus measures 10.0 x 8.1 x 5.5 cm. There is a single, live intrauterine gestation with visible yolk sac and pole. Heart tones were obtained at 113 bpm. Current ultrasound age is 6 weeks 3 days. There is an area of diminished echogenicity adjacent to the gestational sac which may reflect subchorionic hemorrhage measuring 3.1 x 3.8 x 0.5 cm. The maternal right ovary measures 3.9 x 2.7 x 2.5 cm, the left ring 0.5 x 1.9 x 1.6 cm. Probable corpus luteal cyst of the right ovary measuring 2.2 x 2.1 x 1.9 cm. Normal flow to each ovary. No free fluid IMPRESSION: Single, live intrauterine gestation with current ultrasound age 6 weeks 3 days. Adjacent small subchorionic hemorrhage, as above. Continued nonemergent obstetric follow-up recommended copyright 2010 [employer]- All Rights Reserved
[2018-08-24] MEDS ORDERED: NITROFURANTOIN MONOHYD/M-CRYST 100 MG CAPSULE PO ONE (03:03)
[2018-08-24 06:40] VITALS: BP 107/61
== END 2018-08-24 04:40 | disposition home or self-care (01) ==
LOC: ER 21:34
DX: O21.0 Mild hyperemesis gravidarum (principal); O26.891 Other specified pregnancy related conditions, first trimester; R19.7 Diarrhea, unspecified; R10.84 Generalized abdominal pain; R82.71 Bacteriuria; O99.111 Other diseases of the blood and blood-forming organs and certain disorders involving the immune mechanism complicating pregnancy, first trimester; D72.829 Elevated white blood cell count, unspecified; O99.331 Smoking (tobacco) complicating pregnancy, first trimester; O99.511 Diseases of the respiratory system complicating pregnancy, first trimester; J45.909 Unspecified asthma, uncomplicated; Z3A.01 Less than 8 weeks gestation of pregnancy; Z88.0 Allergy status to penicillin
CPT/HCPCS: 96376; 99284; 96361; 96374; 36415; 87086; 84702; 83690; 85025; 81025; 80053; 81001; 76817; 93976; J2405; J7030; J8499

== ENCOUNTER 2018-11-16 18:15 | Emergency (ER) | payer BC, MEDICAID ==
[2018-11-16] MEDS ORDERED: PROCHLORPERAZINE EDISYLATE INJ 10 MG/2 ML VIAL IV ONE (20:33)
[2018-11-16] MEDS ORDERED: DIPHENHYDRAMINE HCL 50 MG/ML VIAL IV ONE (20:33)
[2018-11-16] MEDS ORDERED: NORMAL SALINE 1000 ML 1,000 ML IV ONE (20:34)
--- NOTE | 2018-11-16 20:52 | ER Document Report ---
ED Medical Screen (RME) - General Chief Complaint: Headache Stated Complaint: HEADACHE Time Seen by Provider: 11/16/18 20:18 Primary Care Provider: ROBERT MEMBRENO MD [Primary Care Provider] - Follow up as needed Mode of Arrival: Ambulatory Information source: Patient Notes: Patient is a 23-year-old female who is 19 weeks presenting with chief complaint of migraine headache. Patient reports she has a history of migraines, states that this headache started last night at 930. She states that it started on the left side of her head and she had some tingling in her fingers which she states typically happens prior to the onset of a migraine. She reports associated nausea and light sensitivity. She states she took 1 g of Tylenol twice today with no relief. I have greeted and performed a rapid initial assessment of this patient. A comprehensive ED assessment and evaluation of the patient, analysis of test results and completion of the medical decision making process will be conducted by additional ED providers. Dictation of this chart was performed using voice recognition software; therefore, there may be some unintended grammatical errors . TRAVEL OUTSIDE OF THE [place] IN LAST 30 DAYS: No - Related Data Allergies/Adverse Reactions: Penicillins Allergy (Severe, Verified 04/09/17 12:18) Past Medical History Pulmonary Medical History: Reports: Hx Asthma Neurological Medical History: Reports: Hx Migraine Renal/ Medical History: Denies: Hx Peritoneal Dialysis - Immunizations Hx Diphtheria, Pertussis, Tetanus Vaccination: Yes Physical Exam - Vital signs Vitals: Temp Pulse Resp BP Pulse Ox 98.1 F 94 18 110/63 100 11/16/18 18:33 11/16/18 18:33 11/16/18 18:33 11/16/18 18:33 11/16/18 18:33 Course - Vital Signs Vital signs: Temp Pulse Resp BP Pulse Ox 98.1 F 94 18 110/63 100 11/16/18 18:33 11/16/18 18:33 11/16/18 18:33 11/16/18 18:33 11/16/18 18:33 Doctor's Discharge - Discharge Referrals: ROBERT MEMBRENO MD [Primary Care Provider] - Follow up as needed
--- NOTE | 2018-11-16 22:41 | ER Document Report ---
ED General - General Chief Complaint: Headache Stated Complaint: HEADACHE Time Seen by Provider: 11/16/18 20:18 Primary Care Provider: ROBERT MEMBRENO MD [Primary Care Provider] - Follow up in 3-5 days Mode of Arrival: Ambulatory Notes: Patient is a pleasant 20-year-old female who is 19 weeks presents with complaint of a migraine headache. She says she does have history of migraines. She says she gets 2-3 migraines a year. No fevers. No vomiting. She does have some photophobia associated with it. She was given Reglan in triage and says this is completely with her migraine and she feels much improved. She denies any focal neurologic deficits. She says the headache was gradual in onset and gradually worsened over the last few days. No other complaints at this time. TRAVEL OUTSIDE OF THE [place] IN LAST 30 DAYS: No - Related Data Allergies/Adverse Reactions: Penicillins Allergy (Severe, Verified 04/09/17 12:18) Past Medical History - General Information source: Patient - Social History Smoking Status: Unknown if Ever Smoked Frequency of alcohol use: None Drug Abuse: None Family History: Reviewed & Not Pertinent Patient has suicidal ideation: No Patient has homicidal ideation: No Pulmonary Medical History: Reports: Hx Asthma Neurological Medical History: Reports: Hx Migraine Renal/ Medical History: Denies: Hx Peritoneal Dialysis - Immunizations Hx Diphtheria, Pertussis, Tetanus Vaccination: Yes Review of Systems - Review of Systems Notes: My Normal Review Basic REVIEW OF SYSTEMS: CONSTITUTIONAL : Denies fever, chills, or sweats. Denies recent illness. EENT: Denies eye, ear, throat, or mouth pain or symptoms. Denies nasal or sinus congestion. RESPIRATORY: Denies cough, cold, or chest congestion. Denies shortness of breath, difficulty breathing, or wheezing. GASTROINTESTINAL: Denies abdominal pain. Denies nausea, vomiting, or diarrhea. FEMALE GENITOURINARY: Denies vaginal bleeding, abnormal or irregular periods. LMP: Currently MUSCULOSKELETAL: Denies neck or back pain or joint pain or swelling. SKIN: Denies rash or skin lesions. NEUROLOGICAL: Denies altered mental status or loss of consciousness. Had a headache. Denies weakness or paralysis or loss of use of either side. Denies problems with gait or speech. Denies sensory or motor loss. ALL OTHER SYSTEMS REVIEWED AND NEGATIVE. Physical Exam - Vital signs Vitals: Temp Pulse Resp BP Pulse Ox 98.1 F 94 18 110/63 100 11/16/18 18:33 11/16/18 18:33 11/16/18 18:33 11/16/18 18:33 11/16/18 18:33 - Notes Notes: General Appearance: Well nourished, alert, cooperative, no acute distress, no obvious discomfort. Well-appearing. My exam is after the patient's migraine had been resolved after receiving Reglan in triage. Vitals: reviewed, See vital signs table. Head: no swelling or tenderness to the head Eyes: PERRL, EOMI, Conjuctiva clear Mouth: No decreasd moisture Lungs: No wheezing, No rales, No rhonci, No accessory muscle use, good air exchange bilaterally. Heart: Normal rate, Regular rythm, No murmur, no rub Extremities: strength 5/5 in all extremities, good pulses in all extremities, no edema. Skin: warm, dry, appropriate color, no rash Neuro: speech clear, oriented x 3, normal affect, responds appropriately to questions. Cranial nerves II through XII are intact. Distal sensation intact. Patient moves all extremities without difficulty. No focal neurologic deficits on exam. Normal Romberg. Course - Re-evaluation Re-evalutation: 11/17/18 04:20 Patient looks very well on exam. Headache is completely resolved. I do not suspect subarachnoid hemorrhage and that the headache was gradual onset over the course of a few days. She did previous migraines symptoms in the past. I will prescribe her Reglan as has helped her headaches significantly here. I strongly encouraged her return to ER if she has severe worsening headaches, headaches not responding to Reglan, fevers or vomiting, or sudden onset of a headache that is maximal intensity. Patient agrees with plan and will be discharged home. Dictation of this chart was performed using voice recognition software; therefore, there may be some unintended grammatical errors. - Vital Signs Vital signs: Temp Pulse Resp BP Pulse Ox 98.5 F 82 18 100/72 100 11/16/18 22:57 11/16/18 22:57 11/16/18 22:57 11/16/18 22:57 11/16/18 22:57 Discharge - Discharge Clinical Impression: Headache Qualifiers: Headache type: unspecified Headache chronicity pattern: acute headache Intractability: not intractable Qualified Code(s): R51 - Headache Condition: Good Disposition: HOME, SELF-CARE Additional Instructions: The medication we gave you today for your headache is called Reglan. I will prescribe this for you. It is safe to take in . This sometimes will make you a little bit sleepy so make sure you are not driving or operating machinery after taking it. If you are starting to have a headache you can take a dose of Reglan and then go in a dark room and rest. If the headache does not improve please return to the ER so we can reevaluate you. Always come to the ER immediately if you have a sudden onset headache that is maximal intensity at the onset of the headache. Return to the ER if you ever have vomiting or fevers associate with headaches. Prescriptions: Metoclopramide HCl [Reglan 10 mg Tablet] 1 tab PO ASDIR PRN #20 tablet PRN Reason: Referrals: ROBERT MEMBRENO MD [Primary Care Provider] - Follow up in 3-5 days
[2018-11-16 22:58] VITALS: BP 100/72
== END 2018-11-16 22:58 | disposition home or self-care (01) ==
LOC: ER 18:15
DX: O26.892 Other specified pregnancy related conditions, second trimester (principal); R51 Headache; H53.149 Visual discomfort, unspecified; O99.512 Diseases of the respiratory system complicating pregnancy, second trimester; Z3A.19 19 weeks gestation of pregnancy
CPT/HCPCS: 99283; 96361; 96374; 96375; J1200; J0780; J7030

== ENCOUNTER 2019-03-05 17:25 | Outpatient (CLI) | payer BC, MEDICAID ==
[2019-03-05 18:20] LABS: BACTERIA (WET MOUNT) 4+ BACTERIA SEEN; EPITHELIALS (WET MOUNT) 3+ EPITHELIALS SEEN; RBCS (WET MOUNT) NO RBCS SEEN; T.VAGINALIS (WET MOUNT) NO TRICHOMONAS SEEN; WBCS (WET MOUNT) 2+ WBCS SEEN; YEAST (WET MOUNT) NO YEAST SEEN
[2019-03-05 18:21] LABS: AMORPHOUS SEDIMENT,URINE TRACE /HPF; APPEARANCE,URINE SLIGHTLY-CLOUDY; BILIRUBIN,URINE NEGATIVE (NEGATIVE); COLOR,URINE YELLOW; GLUCOSE, URINE NEGATIVE (NEGATIVE); KETONES,URINE NEGATIVE (NEGATIVE); LEUKOCYTE ESTERASE,URINE SMALL (NEGATIVE); NITRITE,URINE NEGATIVE (NEGATIVE); PROTEIN,URINE NEGATIVE (NEGATIVE); URINE SPECIFIC GRAVITY 1.011; UROBILINOGEN,URINE NEGATIVE mg/dL (<2.0)
[2019-03-05 18:33] LABS: URINE AMPHETAMINES SCREEN NEGATIVE; URINE BARBITURATES SCREEN NEGATIVE; URINE BENZODIAZEPINES SCREEN NEGATIVE; URINE COCAINE SCREEN NEGATIVE; URINE MARIJUANA (THC) SCREEN NEGATIVE; URINE METHADONE SCREEN NEGATIVE; URINE PHENCYCLIDINE SCREEN NEGATIVE
--- NOTE | 2019-03-05 19:28 | Non Stress Test Report ---
Non Stress Test Datetime Report Generated by CPN: 03/05/2019 19:28 DEMOGRAPHIC EGA NST: 34.1 INDICATION Indication for Study: Ordered by Provider VITAL SIGNS Temperature - NST: 98.0 Pulse - NST: 71 RESP - NST: 16 NBPSYS NST: 103 NBPDIA NST: 55 MONITORING Monitor Explained: Monitor Explained; Test Explained; Patient Verbalized Understanding Time on Monitor: 03/05/2019 17:53 Time off Monitor: 03/05/2019 19:14 NST Duration: 81 NST INTERVENTIONS NST Interventions: None Physician Notified NST: Dr. Saucedo BABY A: [id number] BABY A Movement : Present Accelerations : 15X15 Decelerations : None Variability : Moderate 6-25bpm NST Review: Meets Criteria for Reactive NST NST Review and Verified By : RN Kanchan NST Results: Reactive NST REPORT Report Trigger: Send Report
[2019-03-05 19:58] LABS: CHLAM PCR NOT DETECTED (NOT DETECT)
== END 2019-03-05 19:20 | disposition home or self-care (01) ==
LOC: LC 17:25
PROVIDERS: ATTEND Obstetrics & Gynecology
PROC: 4A1HXCZ Monitoring of Products of Conception, Cardiac Rate, External Approach (ICD-10-PCS; principal; 2019-03-05)
DX: O47.03 False labor before 37 completed weeks of gestation, third trimester (principal); Z3A.34 34 weeks gestation of pregnancy
CPT/HCPCS: 59025; 80307; 81001; 84112; 87210; 87491; 87591

== ENCOUNTER 2019-04-10 06:26 | Inpatient (IN) | payer BC, MEDICAID ==
[2019-04-10 06:54] LABS: APPEARANCE,URINE CLEAR; BILIRUBIN,URINE NEGATIVE (NEGATIVE); COLOR,URINE YELLOW; GLUCOSE, URINE NEGATIVE (NEGATIVE); KETONES,URINE NEGATIVE (NEGATIVE); LEUKOCYTE ESTERASE,URINE TRACE (NEGATIVE); NITRITE,URINE NEGATIVE (NEGATIVE); PROTEIN,URINE NEGATIVE (NEGATIVE); URINE SPECIFIC GRAVITY 1.008; UROBILINOGEN,URINE NEGATIVE mg/dL (<2.0)
[2019-04-10 07:09] LABS: URINE AMPHETAMINES SCREEN NEGATIVE; URINE BARBITURATES SCREEN NEGATIVE; URINE BENZODIAZEPINES SCREEN NEGATIVE; URINE COCAINE SCREEN NEGATIVE; URINE MARIJUANA (THC) SCREEN NEGATIVE; URINE METHADONE SCREEN NEGATIVE; URINE PHENCYCLIDINE SCREEN NEGATIVE
[2019-04-10] MEDS ORDERED: RINGERS SOLUTION,LACTATED 1,000 ML IV ONE (08:05)
[2019-04-10] MEDS ORDERED: RINGERS SOLUTION,LACTATED 1,000 ML IV PRN (08:05)
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
[2019-04-10 09:09] LABS: ABSOLUTE EOSINOPHILS # (AUTO) 0.2 10^3/uL (0.0-0.6); ABSOLUTE LYMPHOCYTES (AUTO) 2.9 10^3/uL (0.5-4.7); ABSOLUTE MONOCYTES (AUTO) 0.9 10^3/uL (0.1-1.4); ABSOLUTE NEUT (AUTO) 12.2 10^3/uL (1.7-8.2); BASOPHILS % (AUTO) 0.3 % (0-2); EOSINOPHILS % (AUTO) 1.1 % (0-6); HEMATOCRIT 36.1 % (36.0-47.0); HEMOGLOBIN 12.3 g/dL (12.0-15.5); LYMPHOCYTES % (AUTO) 17.9 % (13-45); MEAN CORPUSCULAR HEMOGLOBIN 30.8 pg (27.0-33.4); MEAN CORPUSCULAR HGB CONC 34.1 g/dL (32.0-36.0); MEAN CORPUSCULAR VOLUME 91 fl (80-97); MONOCYTES % (AUTO) 5.6 % (3-13); PLATELET COUNT 202 10^3/uL (150-450); RED BLOOD COUNT 3.99 10^6/uL (3.72-5.28); RED CELL DISTRIBUTION WIDTH 13.6 % (11.5-14.0); SEGMENTED NEUTROPHILS % (AUTO) 75.1 % (42-78); TOTAL CELLS COUNTED % (AUTO) 100 %; WHITE BLOOD COUNT 16.2 10^3/uL (4.0-10.5)
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
[2019-04-10] MEDS ORDERED: OXYTOCIN/NORMAL SALINE 20 UNIT/1,000 ML RTUINJ ONE (11:33)
[2019-04-10] MEDS ORDERED: OXYTOCIN 10 UNIT/ML VIAL ONE (11:33)
[2019-04-10] MEDS ORDERED: LIDOCAINE 1% INJ-PF (10 MG/ML) 30 ML SDV ONE (11:33)
[2019-04-10] MEDS ORDERED: MISOPROSTOL 0.2 MG TABLET ONE (11:33)
[2019-04-10] MEDS ORDERED: EPHEDRINE SULFATE INJ 50 MG/1 ML AMPULE ONE (12:24)
[2019-04-10] MEDS ORDERED: BUPIVACAINE HCL 0.25 % INJ/PF (2.5 MG/1 ML) 30 ML VIAL ONE (12:24)
[2019-04-10] MEDS ORDERED: FENTANYL/BUPIVACAINE/NS/PF 300 MCG/150 ML RTUINJ EPI ONE (12:24)
[2019-04-10] MEDS ORDERED: FENTANYL CITRATE INJ/PF 100 MCG/2 ML AMPUL ONE (12:25)
[2019-04-10] MEDS ORDERED: OXYTOCIN/NORMAL SALINE 20 UNIT/1,000 ML RTUINJ IV PRN ×2 (15:19→17:26)
[2019-04-10] MEDS ORDERED: ACETAMINOPHEN 325 MG TABLET PO ONE (15:25)
[2019-04-10] MEDS ORDERED: ACETAMINOPHEN 325 MG TABLET ONE (15:26)
[2019-04-10] MEDS ORDERED: MEASLES,MUMPS&RUBELLA VACC/PF 0.5 ML VIAL SUBCUT PRN (17:26)
[2019-04-10] MEDS ORDERED: DIPH/PERTUSS(ACELL)/TETANUS VAC/PF 0.5 ML SYR (>=10YO) IM PRN (17:26)
[2019-04-10] MEDS ORDERED: DIBUCAINE 1% OINTMENT 56 GM TP PRN (17:26)
[2019-04-10] MEDS ORDERED: BENZOCAINE/MENTHOL AEROSOL SPRAY 56 ML TOP PRN (17:26)
[2019-04-10] MEDS ORDERED: ZOLPIDEM TARTRATE 5 MG TABLET PO PRN (17:26)
[2019-04-10] MEDS ORDERED: ACETAMINOPHEN WITH CODEINE #3 TABLET PO PRN ×2 (17:26)
--- NOTE | 2019-04-10 17:56 | Delivery Summary ---
Del Sum A-C Datetime Report Generated by CPN: 04/10/2019 17:55 DELIVERY PERSONNEL DELIVERY PERSONNEL: [id number] Delivery Doctor:: Stella Marina CNM Nurse Cross Tie Turner Certified:: Stella Marina CNM Labor and Delivery Nurse:: Carrie Patrick RNchisel mortiser operator Nurse:: ENRIQUE Morales [employer] Pumping Station Supervisor/PLACEMENT ASSISTANT: Catherine Jeong CST Gas Pumping Station Supervisor/PLACEMENT ASSISTANT: Elsie Christy CST Additional Personnel: : Mary Reese RN MATERNAL INFORMATION Delivery Anesthesia: Epidural Medications After Delivery: Pitocin Bolus-Please Comment; Pitocin Drip 20 Units/1000ml NSS Meds After Delivery Comment: Pitocin 20 units in 1 L NS bolusing per order Delivery QBL: 75 Maternal Complications: None Provider Comments: viable male from OA to ABBY over intact perineum, 2 superficial labial lac, no repair needed, placed on mothers abd, cord clamped and cut by mother after 2 minutes, spont delivery of small calcified placenta, 3 VC, FFFM, baby and mom remains in recovery in stable condition, hsb at BS LABOR SUMMARY EDC: 04/15/2019 00:00 No. Babies in Womb: 1 Attempted: No Labor Anesthesia: Epidural LABOR INFORMATION Reason for Induction: Not Applicable Onset of Labor: 04/10/2019 07:00 Complete Dilatation: 04/10/2019 17:05 Oxytocin: Augmentation Group B Beta Strep: negative Antibiotics # of Doses: 0 Antibiotics Time of Last Dose: n/a Name of Antibiotic Given: n/a Steroids Given: None Reason Steroids Not Administered: Not Applicable MEMBRANES Membranes Rupture Method: Artificial Rupture of Membranes: 04/10/2019 13:34 Length of Rupture (hr): 3.65 Amniotic Fluid Color: Clear Amniotic Fluid Amount: Scant Amniotic Fluid Odor: Normal STAGES OF LABOR Stage 1 hr: 10 Stage 1 min: 5 Stage 2 hr: 0 Stage 2 min: 8 Stage 3 hr: 0 Stage 3 min: 4 Total Time in Labor hr: 10 Total Time in Labor min: 17 VAGINAL DELIVERY Episiotomy: None Laceration Extension #1: N/A Other Laceration: small superficial lacerations, no repair Laceration Repair: No Sponge Count Correct: N/A Sharps Count Correct: N/A CSECTION DELIVERY Primary Indication: N/A Secondary Indication: N/A CSection Incidence: N/A Labor: N/A Elective: N/A CSection Incision: N/A BABY A INFORMATION Infant Delivery Date/Time: 04/10/2019 17:13 Method of Delivery: Vaginal Born in Route : No : N/A Forceps: N/A Vacuum Extraction: N/A Shoulder Dystocia : No PRESENTATION/POSITION BABY A Presentation: Cephalic Cephalic Presentation: Vertex Vertex Position: Left Occipital Anterior Breech Presentation: N/A PLACENTA INFORMATION BABY A Placenta Delivery Time : 04/10/2019 17:17 Placenta Method of Delivery: Spontaneous Placenta Status: Delivered SCORES BABY A Heart Rate 1 min: >100 bpm Resp Effort 1 min: Good Cry Reflex Irritability 1 min: Cough or Sneeze or Pulls Away Muscle Tone 1 min: Active Motion Color 1 min: Blue/Pale SCORE 1 MIN: 8 Heart Rate 5 min: >100 bpm Resp Effort 5 min: Slow, Irregular Reflex Irritability 5 min: Cough or Sneeze or Pulls Away Muscle Tone 5 min: Active Motion Color 5 min: Body [place], Extremities Blue SCORE 5 MIN: 8 INFANT INFORMATION BABY A Gestational Age at Delivery: 39.2 Gestational Status: Full Term- 39- 40.6 Weeks Infant Outcome : Liveborn Infant Condition : Stable Sex: Male IDENTIFICATION BABY A Verification Date/Time: 04/10/2019 17:36 ID Band Number: [id number] Mother's Name Verified: Yes Infant RN Verifying Infant: esthela dallas, esthela kelsi WEIGHT/LENGTH BABY A Birthweight (gm): 2589 Weight (lb): 5 Infant Weight (oz): 11 Length (in): 19.00 Length (cm): 48.26 CORD INFORMATION BABY A No. Cord Vessels: 3 Nuchal Cord : N/A Cord Blood Taken: Yes-For Storage (Mom's Blood type +) Infant Suction: None ASSESSMENT BABY A Infant Complications: Other Infant Complications- Other: cord around ankle Physical Findings at Delivery: Within Normal Limits Respirations: Appears Normal Skin to Skin: No Skin to Skin Time (min): 15 Sand Plant Attendant/ALS Called : No Infant Care By: Mark Reese RNC Transferred To: Remains with Mother BABY B INFORMATION : N/A WEIGHT/LENGTH BABY B Birthweight (gm): 2589 Infant Weight (lb) : 5 Weight (oz): 11 Infant Length (in): 19.00 Length (cm): 48.26
[2019-04-10] MEDS ORDERED: DOCUSATE SODIUM 100 MG CAPSULE ONE (18:38)
[2019-04-10] MEDS ORDERED: FERROUS SULFATE 325 MG TABLET PO ONE (18:38)
[2019-04-10] MEDS: FERROUS SULFATE 325 MG TABLET PO SCH (18:40)
[2019-04-10] MEDS: DOCUSATE SODIUM 100 MG CAPSULE PO SCH (18:40)
[2019-04-10] MEDS ORDERED: IBUPROFEN 800 MG TABLET ONE (19:46)
[2019-04-10] MEDS ORDERED: PROMETHAZINE HCL INJ 25 MG/1 ML VIAL IV PRN (20:01)
[2019-04-10] MEDS ORDERED: PROMETHAZINE HCL INJ 25 MG/1 ML VIAL ONE (20:02)
[2019-04-10] MEDS: IBUPROFEN 800 MG TABLET PO SCH (22:20)
[2019-04-11] MEDS: IBUPROFEN 800 MG TABLET PO SCH ×3 (06:05→21:26)
[2019-04-11 07:05] LABS: HEMATOCRIT 28.3 % (36.0-47.0); MEAN CORPUSCULAR HEMOGLOBIN 31.4 pg (27.0-33.4); MEAN CORPUSCULAR HGB CONC 34.7 g/dL (32.0-36.0); MEAN CORPUSCULAR VOLUME 91 fl (80-97); PLATELET COUNT 185 10^3/uL (150-450); RED BLOOD COUNT 3.12 10^6/uL (3.72-5.28); RED CELL DISTRIBUTION WIDTH 13.8 % (11.5-14.0); WHITE BLOOD COUNT 18.5 10^3/uL (4.0-10.5)
[2019-04-11 07:11] LABS: HEMOGLOBIN 9.8 g/dL (12.0-15.5)
[2019-04-11] MEDS: PRENATAL VITAMIN W DHA CAPSULE PO SCH (09:40)
[2019-04-11] MEDS: SENNOSIDES/DOCUSATE 8.6-50 MG 1 EACH TABLET PO SCH (09:40)
[2019-04-11] MEDS: FERROUS SULFATE 325 MG TABLET PO SCH ×2 (09:41→17:52)
[2019-04-11] MEDS: DOCUSATE SODIUM 100 MG CAPSULE PO SCH ×2 (09:41→17:52)
--- NOTE | 2019-04-11 13:04 | PDOC PROGRESS REPORT ---
Subjective-OB Progress Note for:: 04/11/19 Subjective: reports bleeding slowing, pain controlled with current meds, complaining of severe headache that is worse when she tries to get up. anesthesia has been notified Physical Exam (OB) Vital Signs: Temp Pulse Resp BP Pulse Ox 97.6 F 70 14 104/64 100 04/11/19 07:25 04/11/19 07:25 04/11/19 07:25 04/11/19 07:25 04/11/19 07:25 Intake & Output 04/10/19 04/11/19 04/12/19 06:59 06:59 06:59 Weight 67.8 kg - Abdomen Description: Tender, Soft Hernia Present: No Fundal Description: Firm, Midline Fundal Height: u/u - u/2 - Abdominal Distension: No distension - Extremities Lower extremities: Kandy's sign - neg Calf: Normal, Nontender Objective-Diagnostic Laboratory: 04/11/19 06:40 04/11/19 06:40 WBC 18.5 H RBC 3.12 L Hgb 9.8 L D Hct 28.3 L MCV 91 MCH 31.4 MCHC 34.7 RDW 13.8 Plt Count 185 Assessment and Plan(PN) - Assessment and Plan (1) Vaginal delivery Is this a current diagnosis for this admission?: Yes - Time Spent with Patient Time with patient: Less than 15 minutes Medications reviewed and adjusted accordingly: Yes - Disposition Anticipated Discharge: Home Within: within 48 hours
[2019-04-11] MEDS: BUTALB/ACETAMINOPHEN/CAFFEINE 1 TAB EACH PO PRN ×2 (14:13→20:01)
[2019-04-12] MEDS: IBUPROFEN 800 MG TABLET PO SCH ×2 (06:08→13:15)
[2019-04-12] MEDS: PRENATAL VITAMIN W DHA CAPSULE PO SCH (09:57)
[2019-04-12] MEDS: SENNOSIDES/DOCUSATE 8.6-50 MG 1 EACH TABLET PO SCH (09:57)
[2019-04-12] MEDS: DOCUSATE SODIUM 100 MG CAPSULE PO SCH ×2 (09:57→18:41)
[2019-04-12] MEDS: FERROUS SULFATE 325 MG TABLET PO SCH ×2 (09:57→18:41)
--- NOTE | 2019-04-12 13:17 | PDOC DISCHARGE SUMMARY ---
Final Diagnosis Discharge Date: 04/12/19 - Final Diagnosis (1) Acute blood loss anemia Is this a current diagnosis for this admission?: Yes (2) Vaginal delivery Is this a current diagnosis for this admission?: Yes Discharge Data - Discharge Medication Prescriptions: Ibuprofen [Motrin 800 mg Tablet] 800 mg PO Q8HP PRN #20 tablet PRN Reason: Abdominal Cramping Docusate Sodium [Colace 100 mg Capsule] 100 mg PO BID #60 capsule Ferrous Sulfate [Feosol 325 mg Tablet] 325 mg PO BID #60 tablet Home Medications: Vit/Iron Fum/Folic AC [ Tablet] 1 each PO DAILY 02/07/17 Docusate Sodium [Colace 100 mg Capsule] 100 mg PO BID #60 capsule 04/12/19 Ferrous Sulfate [Feosol 325 mg Tablet] 325 mg PO BID #60 tablet 04/12/19 Ibuprofen [Motrin 800 mg Tablet] 800 mg PO Q8HP PRN #20 tablet 04/12/19 Procedures: Ultrasound Intrapartum Procedure(s): Spontaneous Vaginal Delivery Complication(s): Other - superficial lacerations no repairs - Diagnosis Test Laboratory: Temp Pulse Resp BP Pulse Ox 98.7 F 80 16 105/58 L 99 04/12/19 07:16 04/12/19 07:16 04/12/19 07:16 04/12/19 07:16 04/12/19 07:16 04/10/19 04/10/19 04/11/19 06:40 08:43 06:40 RBC 3.99 3.12 L Hgb 12.3 9.8 L D Hct 36.1 28.3 L Urine Opiates Screen NEGATIVE - Discharge information/Instructions Discharge Activity: Activity As Tolerated, Balance Activity w/Rest, No Lifting Over 10 Pounds, Pelvic Rest, No tub bath, Walk Frequently Discharge Diet: As Tolerated, Regular Disposition: HOME, SELF-CARE Follow [facility] with: [facility] in: 5, Weeks
[2019-04-12 14:02] VITALS: BP 104/63
== END 2019-04-12 18:42 | disposition home or self-care (01) | DRG 806 ==
LOC: LC 06:26 → LR 10:27 → 2S 20:18
PROVIDERS: ADMIT Obstetrics & Gynecology; ATTEND Obstetrics & Gynecology
PROC: 10E0XZZ Delivery of Products of Conception, External Approach (ICD-10-PCS; principal; 2019-04-10)
DX: O44.23 Partial placenta previa NOS or without hemorrhage, third trimester (principal); D62 Acute posthemorrhagic anemia; Z37.0 Single live birth; O99.334 Smoking (tobacco) complicating childbirth; F17.210 Nicotine dependence, cigarettes, uncomplicated; O69.2XX0 Labor and delivery complicated by other cord entanglement, with compression, not applicable or unspecified; O70.0 First degree perineal laceration during delivery; Z3A.39 39 weeks gestation of pregnancy; O99.02 Anemia complicating childbirth; Z88.0 Allergy status to penicillin
CPT/HCPCS: 36415; 62273; 80307; 81005; 84112; 85025; 85027; 86592; 86850; 86900; 86901; 88307; J2550; J2590; J3010; J3490